=== PATIENT | male | born 1960 | race Caucasian/White ===

== ENCOUNTER → 2019-06-23 14:32 | Outpatient (CLI) | payer OTHER, SELFPAY ==
[2019-06-23 15:48] LABS: Erythrocyte Sedimentation Rate 1 mm/hr (0-20)
[2019-06-23 15:51] LABS: Hematocrit 44.3 % (40-54); Hemoglobin 15.3 g/dL (13.0-16.5); Mean Corp Hgb Conc 34.5 g/dL (32-36); Mean Corpuscular Hgb 30.5 pg (27.0-32.0); Mean Corpuscular Volume 88.2 fL (80-94); Mean Platelet Vol. 9.3 fl (6.2-12.0); Platelet Count 228 K/mm3 (150-450); RBC Distribution Width CV 13.2 % (11.6-14.6); RBC Distribution Width SD 42.3 fl (35.1-43.9); Red Blood Count 5.02 M/mm3 (4.6-6.2); White Blood Count 5.6 K/mm3 (4.4-11.0)
[2019-06-23 16:32] LABS: Vitamin B12 369 pg/mL (211-911); Vitamin D,25 Hydroxy 28.9 ng/mL
[2019-06-23 16:44] LABS: ALB/GLOB Ratio 1.1 RATIO (0.9-2.4); AST(SGOT) 23 U/L (15-37); Alanine Aminotransfer ALT/SGPT 33 U/L (16-61); Albumin, Serum 3.8 g/dL (3.2-5.0); Alkaline Phosphatase 54 U/L (45-117); Anion Gap 3 (5-15); BUN 17 mg/dL (7-18); BUN/Creat Ratio 16.2 RATIO (10-20); CRP < 2.90 mg/L (0.0-3.0); Calcium,Total 9.1 mg/dL (8.5-10.1); Chloride 104 mmol/L (98-107); Creatinine, Serum 1.05 mg/dL (0.70-1.30); EST Glomerular Filtration Rate 77 mL/min (>60); Est Glom Filt Rate - Afr Amer 93 mL/min (>60); Ferritin 150 ng/mL (26-388); Globulin 3.5 g/dL (2.2-4.2); Glucose 90 mg/dL (74-106); Iron 106 ug/dL (65-175); Potassium 3.7 mmol/L (3.5-5.1); Protein, Total 7.3 g/dL (6.4-8.2); Sodium Level 138 mmol/L (136-145); Thyroid Stim Hormone (TSH) 3.91 uIU/mL (0.358-3.74)
[2019-06-25 12:11] LABS: Free T3 2.6 pg/mL (2.18-3.98); T4 Free Direct 0.86 ng/dL (0.76-1.46)
[2019-06-25 13:01] LABS: ANTINUCLEAR ANTIBODIES DIRECT Negative (Negative)
== END ==
PROVIDERS: PCP Family Medicine; Referring Provider Family Medicine; Visit Provider Family Medicine
DX: R42 Dizziness and giddiness (principal); R20.2 Paresthesia of skin
CPT/HCPCS: 36415; 80053; 82306; 82607; 82728; 83540; 83735; 84403; 84439; 84443; 84481; 85027; 85652; 86038; 86140